=== PATIENT | female | born 1985 | race Caucasian/White ===

== ENCOUNTER 2016-05-10 09:45 | Emergency (ER) | payer OTHER ==
[2016-05-10 08:50] LABS: URINE SOURCE CLEAN CATCH
[2016-05-10 09:02] LABS: URINE APPEARANCE CLOUDY; URINE BILIRUBIN NEG (NEG); URINE BLOOD NEG (NEG); URINE COLOR YELLOW; URINE GLUCOSE NEG (NEG); URINE KETONE NEG (NEG); URINE LEUKOCYTE ESTERASE NEG (NEG); URINE NITRATE NEG (NEG); URINE PH 5.5 (5-8); URINE PROTEIN NEG (NEG); URINE SPECIFIC GRAVITY 1.012 (1.003-1.035); URINE UROBILINOGEN 0.2 MG/DL (NEG)
[2016-05-10 09:05] LABS: CULTURE INDICATED? NO
[2016-05-10 09:17] LABS: INFLUENZA A NEG (NEG); INFLUENZA B NEG (NEG)
[~2016-05-10 09:45] MED LIST: BACTRIM DS TABL1 TA1 PO; IBUPROFEN800 MG PO; MOTRIN600 M2 PO; NO MEDICATIONS; SEROQUEL PO; SEROQUEL XR400 M1 PO; WELLBUTRIN PO; ZOFRAN PO; [UNRECOGNIZED DRUG - REMARK]
== END 2016-05-10 09:47 | disposition home or self-care (01) ==
LOC: CFTX 09:45
PROVIDERS: Emergency Medicine
DX: J06.9 Acute upper respiratory infection, unspecified (principal); G43.909 Migraine, unspecified, not intractable, without status migrainosus; Z98.890 Other specified postprocedural states
CPT/HCPCS: 81003; 87804; 99283

== ENCOUNTER 2016-09-24 08:40 | Emergency (ER) | payer OTHER ==
[~2016-09-24] VITALS: Ht 149.9 cm; Wt 68.0 kg
== END 2016-09-24 10:07 | disposition home or self-care (01) ==
LOC: CED 08:40
DX: R21 Rash and other nonspecific skin eruption (principal); Z98.890 Other specified postprocedural states; Z88.5 Allergy status to narcotic agent; Z88.8 Allergy status to other drugs, medicaments and biological substances
CPT/HCPCS: 99282